=== PATIENT | female | born 1965 | race American Indian/Alaskan Native ===

== ENCOUNTER 2017-12-14 09:16 | Outpatient (CLI) | payer OTHER ==
--- NOTE | 2017-12-14 09:52 | XRay Report ---
RIGHT KNEE RADIOGRAPHS INDICATION: Knee pain. COMPARISON: None similar at this institution. FINDINGS: Standing AP, lateral, oblique and a sunrise view of the right knee demonstrate grossly intact articulation. Mild to moderate medial compartment narrowing. Mild tibial spine and medial corner degenerative spurring noted. Slight inferior patellar articular pole degenerative spurring may also be present. No suprapatellar effusion. CONCLUSION: Right knee osteoarthrosis with predominantly medial compartment involvement, as described. Please correlate. Thank you for the opportunity to participate in this patient's care.
== END 2017-12-14 09:17 | disposition home or self-care (01) ==
LOC: SPVIMAG 09:16
PROVIDERS: ATTEND Orthopaedic Surgery Sports Medicine
DX: M17.11 Unilateral primary osteoarthritis, right knee (principal); M25.861 Other specified joint disorders, right knee